=== PATIENT | female | born 1950 | race Caucasian/White ===

== ENCOUNTER 2019-06-12 08:59 | Day surgery (SDC) | payer MEDICARE ==
[2019-06-12] VITALS (12 sets, daily range): BP systolic 100–168; BP diastolic 48–104
[~2019-06-12] VITALS: Ht 157.5 cm; Wt 144.3 kg
[2019-06-12] MEDS ORDERED: fentaNYL/PF 50MCG/1 ML 2ML syringe IV ONE (09:25)
[2019-06-12] MEDS ORDERED: MIDAZolam 5mg/ml 2ml vial IV ONE (09:25)
[2019-06-12] MEDS ORDERED: normal saline 1000ml 1,000 ML IV SCH (09:25)
[2019-06-12 10:57] LABS: BASOPHILS % (AUTO) 0.6 % (0-1); EOSINOPHILS # (AUTO) 0.2 X10'3 (0-0.9); EOSINOPHILS % (AUTO) 2.4 % (0-6); HEMATOCRIT 39.5 % (35.0-45.0); HEMOGLOBIN 12.9 g/dl (12.0-16.0); LYMPHOCYTES # (AUTO) 1.9 X10'3 (1.1-4.8); LYMPHOCYTES % (AUTO) 27.9 % (21-51); MEAN CORPUSCULAR HEMOGLOBIN 28.7 PG (27.0-31.0); MEAN CORPUSCULAR HGB CONC 32.8 g/dL (33.0-36.5); MEAN CORPUSCULAR VOLUME 87.7 FL (78-98); MEAN PLATELET VOLUME 7.9 FL (7.4-10.4); MONOCYTES # (AUTO) 0.5 X10'3 (0-0.9); MONOCYTES % (AUTO) 6.9 % (2-12); NEUTROPHILS # (AUTO) 4.2 X10'3 (1.8-7.7); NEUTROPHILS % (AUTO) 62.2 % (42-75); PLATELET COUNT 228 X10'3 (140-440); RED CELL DISTRIBUTION WIDTH 15.3 % (11.5-14.5); WHITE BLOOD COUNT 6.8 X10'3 (4.5-11.0)
[2019-06-12 11:03] LABS: ALBUMIN 3.9 G/DL (3.4-5.0); ANION GAP 11 (8-16); BLOOD UREA NITROGEN 33 MG/DL (7-18); BUN/CREATININE RATIO 17.6 (6.6-38.0); CALCIUM 10.1 MG/DL (8.5-10.1); CHLORIDE 106 MMOL/L (99-107); CREATININE 1.88 MG/DL (0.40-0.90); GLUCOSE 122 MG/DL (70-104); POTASSIUM 4.2 MMOL/L (3.5-5.1); SODIUM 144 MMOL/L (135-145); TOTAL CARBON DIOXIDE 27.1 MMOL/L (24-32); eGFR 27 ML/MIN
[2019-06-12] MEDS ORDERED: LEVO125T PO (12:20)
[2019-06-12] MEDS ORDERED: NAPR220C15 PO (12:20)
[2019-06-12] MEDS ORDERED: CYAN100087 PO (12:20)
[2019-06-12] MEDS ORDERED: LOSA1TAB41 PO (12:20)
[2019-06-12] MEDS ORDERED: ACAR25TA2 PO (12:20)
[2019-06-12] MEDS ORDERED: METF500T20 PO (12:20)
[2019-06-12] MEDS ORDERED: CHOL100046 PO (12:20)
[2019-06-12] MEDS ORDERED: CARV-50 PO (12:20)
[2019-06-12] MEDS ORDERED: POTA10TA36 PO (12:20)
[2019-06-12] MEDS ORDERED: MELA3TAB64 PO (12:20)
[2019-06-12] MEDS ORDERED: APIX5TAB3 PO (12:20)
[2019-06-12] MEDS ORDERED: MULT-955 PO (12:20)
[2019-06-12] MEDS ORDERED: GLIM1TAB3 PO (12:20)
[2019-06-12] MEDS ORDERED: FURO-150 PO (12:20)
== END 2019-06-12 13:40 | disposition home or self-care (01) ==
LOC: SSTAY O 08:59
PROVIDERS: ATTEND Internal Medicine Cardiovascular Disease
DX: I48.3 Typical atrial flutter (principal); E11.9 Type 2 diabetes mellitus without complications; G47.30 Sleep apnea, unspecified; I10 Essential (primary) hypertension; I42.0 Dilated cardiomyopathy; Z90.710 Acquired absence of both cervix and uterus; Z79.899 Other long term (current) drug therapy; Z79.84 Long term (current) use of oral hypoglycemic drugs; Z98.890 Other specified postprocedural states
CPT/HCPCS: 36415; 80048; 82948; 83735; 85025; 85610; 92960; 93005; J2250; J3010; J7030

== ENCOUNTER 2019-08-31 13:20 | Day surgery (SDC) | payer MEDICARE ==
[~2019-08-31] VITALS: Ht 157.5 cm; Wt 145.0 kg
[~2019-08-31 13:20] MED LIST: ACAR25TA2 PO; APIX5TAB3 PO; CARV-50 PO; CHOL100046 PO; CYAN100087 PO; FURO-150 PO; GLIM1TAB3 PO; LEVO125T PO; LOSA1TAB41 PO; MELA3TAB64 PO; METF500T20 PO; MULT-955 PO; NAPR220C15 PO; POTA10TA36 PO
[2019-08-31] MEDS ORDERED: normal saline 1000ml 1,000 ML IV SCH ×2 (13:40→19:15)
[2019-08-31] MEDS ORDERED: SPIR25TA5 PO (14:03)
[2019-08-31] MEDS ORDERED: AMIO200T61 PO (14:03)
[2019-08-31] MEDS ORDERED: cefazolin/dext.iso 2gm/50ml 50 ML IV ONE (14:05)
[2019-08-31] MEDS ORDERED: vancomycin/NS 1 GM ADD-VANTAGE 250 ML IV ONE (14:05)
[2019-08-31 14:06] VITALS: BP 116/36
[2019-08-31 14:22] LABS: BASOPHILS # (AUTO) 0.1 X10'3 (0-0.2); BASOPHILS % (AUTO) 0.8 % (0-1); EOSINOPHILS # (AUTO) 0.2 X10'3 (0-0.9); EOSINOPHILS % (AUTO) 2.5 % (0-6); HEMATOCRIT 39.7 % (35.0-45.0); HEMOGLOBIN 13.1 g/dl (12.0-16.0); LYMPHOCYTES # (AUTO) 2.1 X10'3 (1.1-4.8); LYMPHOCYTES % (AUTO) 30.8 % (21-51); MEAN CORPUSCULAR HEMOGLOBIN 29.3 PG (27.0-31.0); MEAN CORPUSCULAR VOLUME 88.8 FL (78-98); MEAN PLATELET VOLUME 8.4 FL (7.4-10.4); MONOCYTES # (AUTO) 0.4 X10'3 (0-0.9); MONOCYTES % (AUTO) 5.8 % (2-12); NEUTROPHILS # (AUTO) 4.1 X10'3 (1.8-7.7); NEUTROPHILS % (AUTO) 60.1 % (42-75); PLATELET COUNT 213 X10'3 (140-440); RED BLOOD COUNT 4.47 X10'6 (4.20-5.60); RED CELL DISTRIBUTION WIDTH 16.1 % (11.5-14.5); WHITE BLOOD COUNT 6.8 X10'3 (4.5-11.0)
[2019-08-31 14:27] LABS: ALBUMIN 4.4 G/DL (3.4-5.0); ANION GAP 12 (8-16); BLOOD UREA NITROGEN 40 MG/DL (7-18); BUN/CREATININE RATIO 16.6 (6.6-38.0); CALCIUM 10.6 MG/DL (8.5-10.1); CHLORIDE 103 MMOL/L (99-107); CREATININE 2.41 MG/DL (0.40-0.90); GLUCOSE 77 MG/DL (70-104); MAGNESIUM 1.8 MG/DL (1.5-2.4); POTASSIUM 4.8 MMOL/L (3.5-5.1); SODIUM 141 MMOL/L (135-145); TOTAL CARBON DIOXIDE 25.9 MMOL/L (24-32); eGFR 20 ML/MIN
[2019-08-31] MEDS ORDERED: ceFAZolin 1000mg inj ONE (16:53)
[2019-08-31] MEDS ORDERED: fentaNYL/PF 50MCG/1 ML 2ML syringe ONE ×2 (16:53→17:51)
[2019-08-31] MEDS ORDERED: LIDOcaine 1% W/epiNEPHrine 1:100,000 20ml vial ONE ×2 (16:53→17:48)
[2019-08-31] MEDS ORDERED: midazolam 2 mg/2 ml injection ONE ×6 (16:53→18:17)
[2019-08-31] MEDS ORDERED: ceFAZolin 1GM/D5W- ADD-VANTAGE 50 ML IV ONE (16:53)
[2019-08-31] MEDS ORDERED: vancomycin 1,000mg inj ONE (17:23)
[2019-08-31] MEDS ORDERED: proCHLORperazine 10 MG/2 ml inj ONE (17:46)
[2019-08-31 19:00] VITALS: BP 149/79
[2019-08-31 19:16] VITALS: BP 133/61
[2019-08-31 19:30] VITALS: BP 117/80
[2019-08-31 19:45] VITALS: BP 113/50
[2019-08-31 20:00] VITALS: BP 142/70
== END 2019-08-31 20:30 | disposition home or self-care (01) ==
LOC: SSTAY O 13:20
PROVIDERS: ATTEND Internal Medicine Cardiovascular Disease
DX: I49.5 Sick sinus syndrome (principal); G47.30 Sleep apnea, unspecified; E11.22 Type 2 diabetes mellitus with diabetic chronic kidney disease; I12.9 Hypertensive chronic kidney disease with stage 1 through stage 4 chronic kidney disease, or unspecified chronic kidney disease; N18.4 Chronic kidney disease, stage 4 (severe); I42.0 Dilated cardiomyopathy; I48.19 Other persistent atrial fibrillation; E03.9 Hypothyroidism, unspecified; E66.01 Morbid (severe) obesity due to excess calories; Z68.43 Body mass index [BMI] 50.0-59.9, adult; Z90.710 Acquired absence of both cervix and uterus; Z98.890 Other specified postprocedural states; Z87.891 Personal history of nicotine dependence
CPT/HCPCS: 33208; 36415; 71045; 80048; 82948; 83735; 85025; 85610; 93005; 99152; 99153; C1785; C1894; C1898; J0690; J0780; J2250; J3010; J3370; J7030; A4565; A4620

== ENCOUNTER 2019-12-18 10:28 | Day surgery (SDC) | payer MEDICARE ==
[~2019-12-18] VITALS: Ht 157.5 cm; Wt 142.9 kg
[2019-12-18] VITALS (7 sets, daily range): BP systolic 133–155; BP diastolic 52–74
[~2019-12-18 10:28] MED LIST changes: +AMA1T PO; +AMIO200T61 PO; -GLIM1TAB3 PO; -MELA3TAB64 PO; +SPIR25TA5 PO
[2019-12-18] MEDS ORDERED: normal saline 1000ml 1,000 ML IV SCH ×2 (10:55→14:45)
[2019-12-18] MEDS ORDERED: vancomycin 1,000mg inj ONE (12:44)
[2019-12-18] MEDS ORDERED: fentaNYL/PF 50MCG/1 ML 2ML syringe ONE ×2 (12:44→13:31)
[2019-12-18] MEDS ORDERED: midazolam 2 mg/2 ml injection ONE ×5 (12:44→13:46)
[2019-12-18] MEDS ORDERED: ceFAZolin 1000mg inj ONE (12:45)
[2019-12-18] MEDS ORDERED: LIDOcaine 1% W/epiNEPHrine 1:100,000 20ml vial ONE (12:45)
[2019-12-18 12:46] LABS: BASOPHILS # (AUTO) 0.1 X10'3 (0-0.2); BASOPHILS % (AUTO) 1.2 % (0-1); EOSINOPHILS # (AUTO) 0.1 X10'3 (0-0.9); EOSINOPHILS % (AUTO) 2.3 % (0-6); HEMATOCRIT 38.3 % (35.0-45.0); HEMOGLOBIN 12.7 g/dl (12.0-16.0); LYMPHOCYTES % (AUTO) 31.6 % (21-51); MEAN CORPUSCULAR HEMOGLOBIN 30.4 PG (27.0-31.0); MEAN CORPUSCULAR HGB CONC 33.1 g/dL (33.0-36.5); MEAN CORPUSCULAR VOLUME 91.9 FL (78-98); MEAN PLATELET VOLUME 8.3 FL (7.4-10.4); MONOCYTES # (AUTO) 0.5 X10'3 (0-0.9); MONOCYTES % (AUTO) 7.8 % (2-12); NEUTROPHILS # (AUTO) 3.6 X10'3 (1.8-7.7); NEUTROPHILS % (AUTO) 57.1 % (42-75); PLATELET COUNT 220 X10'3 (140-440); RED BLOOD COUNT 4.16 X10'6 (4.20-5.60); RED CELL DISTRIBUTION WIDTH 15.7 % (11.5-14.5); WHITE BLOOD COUNT 6.2 X10'3 (4.5-11.0)
[2019-12-18 12:58] LABS: ALBUMIN 3.8 G/DL (3.4-5.0); ANION GAP 6 (8-16); BLOOD UREA NITROGEN 29 MG/DL (7-18); BUN/CREATININE RATIO 13.4 (6.6-38.0); CALCIUM 10.2 MG/DL (8.5-10.1); CHLORIDE 107 MMOL/L (99-107); CREATININE 2.17 MG/DL (0.40-0.90); GLUCOSE 90 MG/DL (70-104); MAGNESIUM 1.8 MG/DL (1.5-2.4); POTASSIUM 4.4 MMOL/L (3.5-5.1); SODIUM 142 MMOL/L (135-145); TOTAL CARBON DIOXIDE 29.1 MMOL/L (24-32); eGFR 23 ML/MIN
== END 2019-12-18 16:30 | disposition home or self-care (01) ==
LOC: SSTAY O 10:28
PROVIDERS: ATTEND Internal Medicine Cardiovascular Disease
DX: T82.120A Displacement of cardiac electrode, initial encounter (principal); I49.5 Sick sinus syndrome; G47.30 Sleep apnea, unspecified; I48.92 Unspecified atrial flutter; I42.9 Cardiomyopathy, unspecified; I12.9 Hypertensive chronic kidney disease with stage 1 through stage 4 chronic kidney disease, or unspecified chronic kidney disease; N18.4 Chronic kidney disease, stage 4 (severe); E11.22 Type 2 diabetes mellitus with diabetic chronic kidney disease; E03.9 Hypothyroidism, unspecified; I42.0 Dilated cardiomyopathy; I48.19 Other persistent atrial fibrillation; E66.01 Morbid (severe) obesity due to excess calories; Z68.43 Body mass index [BMI] 50.0-59.9, adult; Y83.8 Other surgical procedures as the cause of abnormal reaction of the patient, or of later complication, without mention of misadventure at the time of the procedure; Y92.89 Other specified places as the place of occurrence of the external cause; Z79.899 Other long term (current) drug therapy; Z98.890 Other specified postprocedural states; Z86.73 Personal history of transient ischemic attack (TIA), and cerebral infarction without residual deficits; Z87.891 Personal history of nicotine dependence
CPT/HCPCS: 33216; 33235; 36415; 71045; 80048; 82948; 83735; 85025; 85610; 99152; 99153; C1894; J0690; J2250; J3010; J3370; 33234; A4565; A4620